=== PATIENT | female | born 1950 | race Caucasian/White ===

== ENCOUNTER → 2016-09-15 | Outpatient (CLI) | payer OTHER ==
--- NOTE | 2016-09-20 09:23 | MM ---
Reason for exam: screening (asymptomatic). Last mammogram was performed 1 year ago. History: Patient is postmenopausal. Physical Findings: A clinical breast exam by your physician is recommended on an annual basis and results should be correlated with mammographic findings. MG 3D Screening Mammo W/Cad Bilateral CC and MLO view(s) were taken. Prior study comparison: September 11, 2015, mammogram, performed at [facility]. September 18, 2014, mammogram, performed at [facility]. There are scattered fibroglandular densities. No significant changes when compared with prior studies. ASSESSMENT: Benign, BI-RAD 2 RECOMMENDATION: Routine screening mammogram of both breasts in 1 year.
== END | disposition home or self-care (01) ==
LOC: RADMAMWWP 13:46
PROVIDERS: ATTEND Family Medicine
DX: Z12.31 Encounter for screening mammogram for malignant neoplasm of breast (principal)
CPT/HCPCS: 77063; G0202

== ENCOUNTER 2017-07-02 13:07 | Emergency (ER) | payer OTHER ==
[2017-07-02 13:17] VITALS: BP 136/71; PULSE 68; RESP 20; TEMP 98.3
--- NOTE | 2017-07-02 13:50 | ED ---
General Adult HPI - General Chief complaint: Recheck/Abnormal Lab/Rx Stated complaint: Abdormal Labs/Cardiac Time Seen by Provider: 07/02/17 13:19 Source: patient, RN notes reviewed Mode of arrival: wheelchair Limitations: no limitations - History of Present Illness Initial comments: 67-year-old female presenting for evaluation of left arm bug bite. Patient was seen at [facility], for some unknown reason patient did have an EKG obtained and she was sent for concern of abnormal EKG. Patient has no history of coronary artery disease, no history of hypertension. She denies any chest pain shortness of breath, denies any shoulder pain and jaw pain and neck pain. Patient denies nausea vomiting or diarrhea. Denies fever or chills. Denies any weakness in her left upper extremity. She was seeking evaluation of itchy bug bite to her left upper extremity. This been present for approximately 3 weeks, she was recently in [place] and this is where the bug bite occurred. She was prescribed Celestina, prednisone, Zantac, and steroid cream prior to leaving urgent care. - Related Data Home Medications Medication Instructions Recorded Confirmed Citalopram Hydrobromide [CeleXA] 10 mg PO DAILY 12/16/14 12/16/14 Previous Rx's Medication Instructions Recorded chlordiazePOXIDE HCl [Librium] 25 mg PO QID #20 capsule 12/16/14 Allergies Allergy/AdvReac Type Severity Reaction Status Date / Time Sulfa (Sulfonamide Allergy Rash/Hives Verified 07/02/17 13:17 Antibiotics) Review of Systems ROS Statement: Those systems with pertinent positive or pertinent negative responses have been documented in the HPI. ROS Other: All systems not noted in ROS Statement are negative. 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 Absent: tenderness, meningismus Respiratory exam: Present: normal lung sounds bilaterally. Absent: respiratory distress Cardiovascular Exam: Present: regular rate, normal rhythm GI/Abdominal exam: Present: soft. Absent: distended, tenderness, guarding Extremities exam: Present: normal capillary refill, other (Small lesions on the anterior surface left upper extremity, no surrounding induration or fluctuance, no cellulitis, no signs of deep space infection or ALLERGIC reaction. 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 Absent: pedal edema, calf tenderness Neurological exam: Present: alert, oriented X3, CN II-XII intact. Absent: motor sensory deficit Psychiatric exam: Present: normal affect, normal mood Skin exam: Present: warm, dry, intact. Absent: cyanosis, diaphoretic Course Vital Signs 07/02/17 13:15 Temperature 98.3 F Pulse Rate 68 Respiratory 20 Rate Blood Pressure 136/71 O2 Sat by Pulse 99 Oximetry EKG Findings - EKG Comments: EKG Findings:: EKG shows sinus bradycardia rate of 59, CT interval 174, QRS duration 84, QTC 401, no ST segment changes, normal T waves, no signs of ischemia Medical Decision Making - Medical Decision Making 67-year-old female presenting for suspected bug bite. EKG was obtained and medics rest, these EKGs were reviewed, no ST segment changes, no concern for ischemia, these were sinus rhythm she is sinus bradycardia with a rate of 59, no signs of ischemia. Patient has no complaints to suggest myocardial infarction or ischemia. Patient will take the medications as prescribed for her bug bite, and follow-up with her primary care physician. Disposition Clinical Impression: Bug bite Disposition: HOME SELF-CARE Condition: Good Instructions: Insect Bite or Sting (ED) Additional Instructions: Please take medications prescribed by [facility] Referrals: Noam Rios MD [Primary Care Provider] - 1-2 days Time of Disposition: 13:48
== END 2017-07-02 13:55 | disposition home or self-care (01) ==
LOC: EC 13:07
DX: S40.862A Insect bite (nonvenomous) of left upper arm, initial encounter (principal); R00.1 Bradycardia, unspecified; F32.9 Major depressive disorder, single episode, unspecified; Z79.899 Other long term (current) drug therapy; Z88.2 Allergy status to sulfonamides; W57.XXXA Bitten or stung by nonvenomous insect and other nonvenomous arthropods, initial encounter
CPT/HCPCS: 93005; 99283; 99284

== ENCOUNTER → 2017-10-02 | Outpatient (CLI) | payer OTHER ==
--- NOTE | 2017-10-03 14:13 | MM ---
Reason for exam: screening (asymptomatic). Last mammogram was performed 1 year and 1 month ago. History: Patient is postmenopausal. Physical Findings: A clinical breast exam by your physician is recommended on an annual basis and results should be correlated with mammographic findings. MG 3D Screening Mammo W/Cad Bilateral CC and MLO view(s) were taken. Prior study comparison: September 15, 2016, bilateral MG 3d screening mammo w/cad. September 11, 2015, mammogram, performed at [facility]. There is chronic nodularity in the right breast. No significant changes when compared with prior studies. ASSESSMENT: Benign, BI-RAD 2 RECOMMENDATION: Routine screening mammogram of both breasts in 1 year.
== END | disposition home or self-care (01) ==
LOC: LABWHC1 13:50
PROVIDERS: ATTEND Internal Medicine
DX: Z12.31 Encounter for screening mammogram for malignant neoplasm of breast (principal)
CPT/HCPCS: 77063; 77067

== ENCOUNTER 2019-10-26 09:21 | Emergency (ER) | payer BC ==
[2019-10-26 09:30] VITALS: BP 121/70; PULSE 68; RESP 18; TEMP 97.7
[2019-10-26] MEDS ORDERED: PROPARACAINE 0.5% OPHTH DROPS 15 ML BTL RIGHT EYE STA (09:32)
[2019-10-26] MEDS ORDERED: FLUORESCEIN STRIPS 1 MG STRIP RIGHT EYE ONE (09:33)
--- NOTE | 2019-10-26 10:10 | ED ---
Eye Problem HPI - General Chief complaint: Eye Problems Stated complaint: eye problem Time Seen by Provider: 10/26/19 09:30 Source: patient Mode of arrival: ambulatory Limitations: no limitations - History of Present Illness Initial comments: The patient is a 69-year-old female past history of glaucoma and recent cataract repair who presents to the emergency room with reported foreign body sensation in her right eye. Patient had cataract surgery 5 days ago. States that her vision has been good after the procedure. Yesterday she was walking outside when she felt as that she caught something in her right eye. She has had foreign body sensation without visual disturbance. No flashes or floaters of light. Denies blurred vision or loss of vision. She does not wear contacts. Patient wears glasses for reading. Denies ocular pain. No fevers or chills. Increased tearing but denies drainage. There are no other alleviating, precipitating or modifying factors - Related Data Home Medications Medication Instructions Recorded Confirmed Citalopram Hydrobromide [CeleXA] 10 mg PO HS 12/16/14 07/02/17 Calcium Carbonate [Calcium] 600 mg PO DAILY 07/02/17 07/02/17 [place]-3 Fatty Acids/Fish Oil [Fish 1 cap PO DAILY 07/02/17 07/02/17 Oil 1,000 mg Softgel] Allergies Allergy/AdvReac Type Severity Reaction Status Date / Time Sulfa (Sulfonamide Allergy Rash/Hives Verified 10/26/19 09:31 Antibiotics) Review of Systems ROS Statement: Those systems with pertinent positive or pertinent negative responses have been documented in the HPI. ROS Other: All systems not noted in ROS Statement are negative. 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 No hypopyon. small FB underneath right eyelid). Absent: scleral icterus, conjunctival injection, nystagmus, periorbital swelling, periorbital tenderness Pupils: Present: normal accommodation Course Vital Signs 10/26/19 09:24 Temperature 97.7 F Pulse Rate 68 Respiratory 18 Rate Blood Pressure 121/70 O2 Sat by Pulse 99 Oximetry Medical Decision Making - Medical Decision Making Upon arrival the patient is placed in room 15. A thorough history and physical exam was performed. Pupils are equally reactive to light. Inversion of the patient's eyelids demonstrate some makeup underneath the patient's right eye which is extracted. Patient feels as if the foreign body has been removed. I continue to use proparacaine and fluorescein to numb and dye the patients eye. No abrasions identified. Recheck she is performed. Ocular pressures are obtained and are 21. Patient be discharged home at this time. Follow-up with Dr. Pihllip on Monday. Return to the emergency room for any new or worsening symptoms. The patient was discharged in stable condition Disposition Clinical Impression: Foreign body of eye, external, right Disposition: HOME SELF-CARE Condition: Stable Instructions (If sedation given, give patient instructions): Eye Foreign Body (ED) Additional Instructions: Please call Dr. Phillip on Monday to notify him of your presence in the emergency department. Return to the emergency room for any new or worsening symptoms Is patient prescribed a controlled substance at d/c from ED?: No Referrals: Fransisco Horne MD [Primary Care Provider] - 1-2 days Keely Phillip MD [STAFF PHYSICIAN] - 1-2 days Time of Disposition: 10:09
== END 2019-10-26 10:18 | disposition home or self-care (01) ==
LOC: EC 09:21
DX: T15.91XA Foreign body on external eye, part unspecified, right eye, initial encounter (principal); F32.9 Major depressive disorder, single episode, unspecified; Z79.899 Other long term (current) drug therapy; Z88.2 Allergy status to sulfonamides
CPT/HCPCS: 99283

== ENCOUNTER → 2020-01-13 | Outpatient (CLI) | payer BC ==
--- NOTE | 2020-01-15 07:44 | MM ---
Reason for exam: screening (asymptomatic). Last mammogram was performed 1 year and 3 months ago. History: Patient is postmenopausal. Physical Findings: A clinical breast exam by your physician is recommended on an annual basis and results should be correlated with mammographic findings. MG 3D Screening Mammo W/Cad Bilateral CC and MLO view(s) were taken. Prior study comparison: October 18, 2018, bilateral MG 3d screening mammo w/cad. October 02, 2017, bilateral MG 3d screening mammo w/cad. The breast tissue is heterogeneously dense. This may lower the sensitivity of mammography. Benign appearing bilateral calcifications. No significant changes when compared with prior studies. ASSESSMENT: Benign, BI-RAD 2 RECOMMENDATION: Routine screening mammogram of both breasts in 1 year.
== END | disposition home or self-care (01) ==
LOC: RADMAMWWP 12:32
PROVIDERS: ATTEND Internal Medicine
DX: Z12.31 Encounter for screening mammogram for malignant neoplasm of breast (principal)
CPT/HCPCS: 77063; 77067

== ENCOUNTER → 2021-02-12 | Outpatient (CLI) | payer BC ==
--- NOTE | 2021-02-15 09:43 | MM ---
Reason for exam: screening (asymptomatic). Last mammogram was performed 1 year and 1 month ago. History: Patient is postmenopausal. Physical Findings: A clinical breast exam by your physician is recommended on an annual basis and results should be correlated with mammographic findings. MG 3D Screening Mammo W/Cad Bilateral CC and MLO view(s) were taken. Prior study comparison: January 13, 2020, bilateral MG 3d screening mammo w/cad. October 18, 2018, bilateral MG 3d screening mammo w/cad. The breast tissue is heterogeneously dense. This may lower the sensitivity of mammography. No significant changes when compared with prior studies. ASSESSMENT: Negative, BI-RAD 1 RECOMMENDATION: Routine screening mammogram of both breasts in 1 year.
== END | disposition home or self-care (01) ==
LOC: RADMAMWWP 14:17
PROVIDERS: ATTEND Family Medicine
DX: Z12.31 Encounter for screening mammogram for malignant neoplasm of breast (principal); Z78.0 Asymptomatic menopausal state
CPT/HCPCS: 77063; 77067

== ENCOUNTER → 2022-02-15 | Outpatient (CLI) | payer BC ==
--- NOTE | 2022-02-16 18:49 | MM ---
Reason for Exam: Screening (asymptomatic). Last screening mammogram was performed 12 month(s) ago. Patient History: Menarche at age 11. Left ovary removed at age 33. Right ovary removed at age 33. Hysterectomy at age 33. Postmenopausal. Risk Values: Bonnie 5 year model risk: 1.3%. NCI Lifetime model risk: 3.0%. Prior Study Comparison: 10/18/2018 Bilateral Screening Mammogram, [facility]. 01/13/2020 Bilateral Screening Mammogram, [facility]. 02/12/2021 Bilateral Screening Mammogram, [facility]. Tissue Density: The breast tissue is heterogeneously dense. This may lower the sensitivity of mammography. Findings: Analyzed By CAD. Asymmetric density subareolar right cc view remains unchanged. There are areas of asymmetric density including nodular asymmetric density posterior medial left CC view also unchanged. No significant change from prior exams. Overall Assessment: Benign, BI-RAD 2 Management: Screening Mammogram of both breasts in 1 year. 1. Patient should continue monthly self breast exams. 2. A clinical breast exam by your physician is recommended on an annual basis. 3. This exam should not preclude additional follow-up of suspicious palpable abnormalities. Electronically signed and approved by: Chavez Atkins M.D. Radiologist
--- NOTE | 2022-02-16 18:49 | MM ---
Reason for Exam: Screening (asymptomatic). Last screening mammogram was performed 12 month(s) ago. Patient History: Menarche at age 11. Left ovary removed at age 33. Right ovary removed at age 33. Hysterectomy at age 33. Postmenopausal. Risk Values: Bonnie 5 year model risk: 1.3%. NCI Lifetime model risk: 3.0%. Prior Study Comparison: 10/18/2018 Bilateral Screening Mammogram, [facility]. 01/13/2020 Bilateral Screening Mammogram, [facility]. 02/12/2021 Bilateral Screening Mammogram, [facility]. Tissue Density: The breast tissue is heterogeneously dense. This may lower the sensitivity of mammography. Findings: Analyzed By CAD. Asymmetric density subareolar right cc view remains unchanged. There are areas of asymmetric density including nodular asymmetric density posterior medial left CC view also unchanged. No significant change from prior exams. Overall Assessment: Benign, BI-RAD 2 Management: Screening Mammogram of both breasts in 1 year. 1. Patient should continue monthly self breast exams. 2. A clinical breast exam by your physician is recommended on an annual basis. 3. This exam should not preclude additional follow-up of suspicious palpable abnormalities. Electronically signed and approved by: Chavez Atkins M.D. Radiologist
== END | disposition home or self-care (01) ==
LOC: RADMAMWWP 13:55
PROVIDERS: ATTEND Family Medicine
DX: Z12.31 Encounter for screening mammogram for malignant neoplasm of breast (principal); Z78.0 Asymptomatic menopausal state
CPT/HCPCS: 77063; 77067

== ENCOUNTER 2023-01-03 20:15 | Emergency (ER) | payer BC ==
--- NOTE | 2023-01-03 21:28 | ED ---
General Adult HPI - General Source: patient, RN notes reviewed Mode of arrival: ambulatory Limitations: no limitations <Marietta Ruiz - Last Filed: 01/03/23 21:27> <Taylor Tirado - Last Filed: 01/03/23 22:45> - General Chief complaint: Recheck/Abnormal Lab/Rx Stated complaint: Swelling in bottom lip, Pain Time Seen by Provider: 01/03/23 21:27 - History of Present Illness Initial comments: 72-year-old female presents to the emergency department the chief complaint of lip pain. Patient reports rash, tight feeling to her lower lip for 8 weeks. Patient recently placed on acyclovir. Denies difficulty in breathing (Marietta Ruiz) 72-year-old female presenting with chief complaint of pain and swelling to the lower lip. This has been ongoing for 8 weeks. She states that she has on her boat for the last 8 weeks and had difficulty getting him care. She was recently started on acyclovir which did not seem to help. She states that it is a burning pain. No difficulty breathing or swallowing. No new foods, medications, topical products. No swelling of the tongue. (Taylor Tirado) - Related Data Home Medications Medication Instructions Recorded Confirmed Citalopram Hydrobromide [CeleXA] 10 mg PO HS 12/16/14 07/02/17 Calcium Carbonate [Calcium] 600 mg PO DAILY 07/02/17 07/02/17 [place]-3 Fatty Acids/Fish Oil [Fish 1 cap PO DAILY 07/02/17 07/02/17 Oil 1,000 mg Softgel] Previous Rx's Medication Instructions Recorded Amoxic-Pot Clav 875-125Mg 1 tab PO Q12HR 7 Days #14 tab 01/03/23 [Augmentin 875-125] methylPREDNISolone Dose Pack 4 mg PO DIRECTED #1 packet 01/03/23 [Medrol Dose Pack] Allergies Allergy/AdvReac Type Severity Reaction Status Date / Time Sulfa (Sulfonamide Allergy Rash/Hives Verified 01/03/23 20:19 Antibiotics) Review of Systems ROS Other: All systems not noted in ROS Statement are negative. <Marietta Ruiz - Last Filed: 01/03/23 21:27> ROS Other: All systems not noted in ROS Statement are negative. <Taylor Tirado - Last Filed: 01/03/23 22:45> ROS Statement: Those systems with pertinent positive or pertinent negative responses have been documented in the HPI. 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 History of Any Multi-Drug Resistant Organisms: None Reported Past Surgical History: Hysterectomy, Orthopedic Surgery Additional Past Surgical History / Comment(s): cataract Past Psychological History: Depression Smoking Status: Never smoker Past Alcohol Use History: Abuse Past Drug Use History: None Reported <Marietta Ruiz - Last Filed: 01/03/23 21:27> General Exam Limitations: no limitations <Marietta Ruiz - Last Filed: 01/03/23 21:27> Limitations: no limitations General appearance: alert, in no apparent distress Head exam: Present: atraumatic, normocephalic, normal inspection Eye exam: Present: normal appearance, EOMI. Absent: periorbital swelling Expanded Mouth exam: Present: tongue normal, other (Swelling to the lower lip, scabs seen on the lip). Absent: drooling, trismus, muffled voice Throat exam: normal inspection Neck exam: Present: normal inspection, full ROM Respiratory exam: Present: normal lung sounds bilaterally. Absent: respiratory distress, wheezes, rales, rhonchi, stridor Cardiovascular Exam: Present: regular rate, normal rhythm, normal heart sounds. Absent: systolic murmur, diastolic murmur, rubs, gallop, clicks Neurological exam: Present: alert, oriented X3, CN II-XII intact Psychiatric exam: Present: normal affect, normal mood Skin exam: Present: warm, dry, intact, normal color. Absent: rash <Taylor Tirado - Last Filed: 01/03/23 22:45> - General Exam Comments Initial Comments: Visual Physical Exam Vital signs reviewed General: Well-appearing, nontoxic, no acute distress. Head: Normocephalic, atraumatic Eyes: PERRLA, EOMI ENT: Airway patent Chest: Nonlabored breathing Skin: No visual rash, normal skin tone Neuro: Alert and oriented 3 Musculoskeletal: No gross abnormalities I performed the quick note portion of this exam, verbal signature Marietta castillo PA-C (Marietta Ruiz) Course Vital Signs 01/03/23 01/03/23 20:17 22:26 Temperature 98.3 F 98.0 F Pulse Rate 83 76 Respiratory 18 17 Rate Blood Pressure 155/74 140/68 O2 Sat by Pulse 97 97 Oximetry Medical Decision Making <Taylor Tirado - Last Filed: 01/03/23 22:45> - Medical Decision Making Was pt. sent in by a medical professional or institution ([facility], [facility], urgent care, hospital, or long-term...) When possible be specific @ -No Did you speak to anyone other than the patient for history (EMS, parent, family, police, friend...)? What history was obtained from this source @ -No Did you review nursing and triage notes (agree or disagree)? Why? @ -I reviewed and agree with nursing and triage notes Were old charts reviewed (outside hosp., previous admission, EMS record, old EKG, old radiological studies, urgent care reports/EKG's, long-term records)? Report findings @ -No old charts were reviewed Differential Diagnosis (chest pain, altered mental status, abdominal pain women, abdominal pain men, vaginal bleeding, weakness, fever, dyspnea, syncope, headache, dizziness, GI bleed, back pain, seizure, CVA, palpatations, mental health, musculoskeletal)? @ -Differential includes ALLERGIC reaction, cellulitis, cold sore, this is not an all inclusive list EKG interpreted by me (3pts min.). @ -As above X-rays interpreted by me (1pt min.). @ -None done CT interpreted by me (1pt min.). @ -None done U/S interpreted by me (1pt. min.). @ -None done What testing was considered but not performed or refused? (CT, X-rays, U/S, labs)? Why? @ -None What meds were considered but not given or refused? Why? @ -None Did you discuss the management of the patient with other professionals (professionals i.e. [facility], [facility], lab, RT, psych nurse, licensed clinical social worker, respiratory therapy aide, teacher, bank secrecy act officer, telehealth case manager)? Give summary @ -No Was smoking cessation discussed for >3mins.? @ -No Was critical care preformed (if so, how long)? @ -No Were there social determinants of health that impacted care today? How? (Homelessness, low income, unemployed, alcoholism, drug addiction, transportat ion, low edu. Level, literacy, decrease access to med. care, shelter, rehab)? @ -No Was there de-escalation of care discussed even if they declined (Discuss DNR or withdrawal of care, Hospice)? DNR status @ -No What co-morbidities impacted this encounter? (DM, HTN, Smoking, COPD, CAD, Cancer, CVA, ARF, Chemo, Hep., AIDS, mental health diagnosis, sleep apnea, morbid obesity)? @ -None Was patient admitted / discharged? Hospital course, mention meds given and route, prescriptions, significant lab abnormalities, going to OR and other pertinent info. @ -72-year-old female presenting with chief complaint of pain and swelling to the lower lip ongoing for several weeks. She was treated with acyclovir which did not relieve her symptoms. On physical examination there is some swelling to the lower lip with some scabs noted. No swelling of the tongue and normal post erior pharynx is noted. No difficulty breathing. Heart and lungs are clear to auscultation. Patient is instructed take Benadryl at home as needed, she did provide a Medrol Dosepak. She will also be treated with Augmentin for possible bacterial infection. Follow-up with PCP. Report back to ER with any new or worsening symptoms. Discussed return parameters and answered all questions. Patient conveyed verbal understanding and agreed to the plan. I discussed this case in detail with my attending Dr. Undiagnosed new problem with uncertain prognosis? @ -No Drug Therapy requiring intensive monitoring for toxicity (Heparin, Nitro, Insulin, Cardizem)? @ -No Were any procedures done? @ -No Diagnosis/symptom? @ -Cellulitis Acute, or Chronic, or Acute on Chronic? @ -[Acute Uncomplicated (without systemic symptoms) or Complicated (systemic symptoms)? @ -[Uncomplicated Side effects of treatment? @ -[o]Exacerbation, Progression, or Severe Exacerbation? @ -[o]Poses a threat to life or bodily function? How? (Chest pain, [place], [place], pneumonia, PE, COPD, DKA, ARF, appy, cholecystitis, CVA, Diverticulitis, Homicidal, Suicidal, threat to staff... and all critical care pts) @ -[o] (Taylor Tirado) Disposition <Marietta Ruiz - Last Filed: 01/03/23 21:27> Is patient prescribed a controlled substance at d/c from ED?: No Time of Disposition: 21:54 <Taylor Tirado - Last Filed: 01/03/23 22:45> Clinical Impression: Cellulitis Disposition: HOME SELF-CARE Condition: Good Instructions (If sedation given, give patient instructions): Cellulitis (ED) Additional Instructions: Follow-up with PCP. Report back to ER with any new or worsening symptoms. Take Benadryl as needed. Prescriptions: Amoxic-Pot Clav 875-125Mg [Augmentin 875-125] 1 tab PO Q12HR 7 Days #14 tab methylPREDNISolone Dose Pack [Medrol Dose Pack] 4 mg PO DIRECTED #1 packet Referrals: Elizabeth Oseguera MD [Primary Care Provider] - 1-2 days
[2023-01-03 22:28] VITALS: BP 140/68; PULSE 76; RESP 17; TEMP 98
== END 2023-01-03 22:26 | disposition home or self-care (01) ==
LOC: EC 20:15
DX: K13.0 Diseases of lips (principal); F32.A Depression, unspecified; Z79.899 Other long term (current) drug therapy; Z88.2 Allergy status to sulfonamides
CPT/HCPCS: 99283

== ENCOUNTER → 2023-02-16 | Outpatient (CLI) | payer BC ==
--- NOTE | 2023-02-17 12:16 | BD ---
EXAMINATION TYPE: Axial Bone Density DATE OF EXAM: 02/16/2023 CLINICAL HISTORY: 73 years old Female. ICD-10 CODE: Z78.0 POST MENOPAUSAL WITHOUT HRT Height: Weight: FRAX RISK QUESTIONS: Family History (Parent hip fracture): no History of Fracture in Adulthood: no Secondary Osteoporosis: no RISK FACTORS HISTORY OF: Family History of Osteoporosis: no Active: yes Diet low in dairy products/other sources of calcium: no Postmenopausal woman: yes Lost more than 2 inches in height since high school: yes was 64 Frequent falls: no Poor Health: no MEDICATIONS: Additional Medications: yes anxiety EXAM MEASUREMENTS: Bone mineral densitometry was performed using the [employer] System. Bone mineral density as measured about the Lumbar spine is: ----- L1-L4(G/cm2): 1.278 T Score Values are as follows: ----- L1: -30 ----- L2: 0.5 ----- L3: 1.5 ----- L4: 1.5 ----- L1-L4: 0.8 Z Score Values are as follows: ----- L1: 1.3 ----- L2: 2.1 ----- L3: 3.1 ----- L4: 3.1 ----- L1-L4: 2.4 Bone mineral density baseline Bone mineral density about the R hip (g/cm2): 0.936 Bone mineral density about the L hip (g/cm2): 0.947 T Score values are as follows: -----R Neck: -1.6 -----L Neck: -1.2 -----R Total: -0.6 -----L Total: -0.5 Z Score values are as follows: -----R Neck: 0.2 -----L Neck: 0.6 -----R Total: 1.0 -----L Total: 1.1 Bone mineral density baseline FRAX%s: The graph provided illustrates a 11.6% chance for a major osteoporotic fx and a 2.5% chance f or the hips probability for fx in 10 years time. IMPRESSION: Normal (Values between +1 and -1 indicate normal bone mass). Consider repeating this study in 5 year s or sooner if there is some new clinical indication. NOTE: T-SCORE=SD OF THE YOUNG ADULT MEAN.
--- NOTE | 2023-02-20 01:39 | MM ---
Reason for Exam: Screening (asymptomatic). Last screening mammogram was performed 12 month(s) ago. Patient History: Menarche at age 11. Patient has no children. Left ovary removed at age 33. Right ovary removed at age 33. Hysterectomy at age 33. Postmenopausal. Risk Values: Bonnie 5 year model risk: 2.0%. NCI Lifetime model risk: 4.2%. Prior Study Comparison: 01/13/2020 Bilateral Screening Mammogram, [facility]. 02/12/2021 Bilateral Screening Mammogram, [facility]. 02/15/2022 Bilateral MG 3D screening mammo w/cad, [facility]. Tissue Density: The breast tissue is heterogeneously dense. This may lower the sensitivity of mammography. Findings: Analyzed By CAD. There is no suspicious group of microcalcifications or new suspicious mass in either breast. Overall Assessment: Negative, BI-RAD 1 Management: Screening Mammogram of both breasts in 1 year. . Patient should continue monthly self-breast exams. A clinical breast exam by your physician is recommended on an annual basis. This exam should not preclude additional follow-up of suspicious palpable abnormalities. Note on Bonnie scores and lifetime risk: 1. A Bonnie score greater than 3% is considered moderate risk. If this is the case, consider specialist referral to assess eligibility for a risk reducing agent. 2. If overall lifetime risk for the development of breast cancer is 20% or higher, the patient may qualify for future screening with alternating mammogram and breast MRI. Electronically signed and approved by: Chavez Atkins M.D. Radiologist
== END | disposition home or self-care (01) ==
LOC: RADMAMWWP 14:01
PROVIDERS: ATTEND Family Medicine
DX: Z12.31 Encounter for screening mammogram for malignant neoplasm of breast (principal); Z78.0 Asymptomatic menopausal state; M85.89 Other specified disorders of bone density and structure, multiple sites
CPT/HCPCS: 77063; 77067; 77080

== ENCOUNTER → 2024-01-03 | Outpatient (CLI) | payer BC ==
--- NOTE | 2024-01-03 08:19 | XR ---
EXAMINATION TYPE: XR KUB DATE OF EXAM: 01/03/2024 8:07 AM CLINICAL INDICATION: Female, 73 years old with history of R31.29 Microscopic hematuria; [facility] COMPARISON: None. TECHNIQUE: One radiographic view of the abdomen was obtained. FINDINGS: The bowel gas pattern is nonspecific without dilated loops of small or large bowel. . Fecal material and gas are demonstrated throughout the colon and rectum. There is no evidence for organomegaly or pneumoperitoneum. The osseous structures are intact. No ab normal calcifications are present. IMPRESSION: Nonspecific bowel gas pattern without radiographic evidence for acute process.
== END | disposition home or self-care (01) ==
LOC: RADXRMAIN 07:52
PROVIDERS: ATTEND Internal Medicine
DX: R31.29 Other microscopic hematuria (principal)
CPT/HCPCS: 74018

== ENCOUNTER → 2024-02-19 | Outpatient (CLI) | payer BC ==
--- NOTE | 2024-02-20 19:03 | MM ---
Reason for Exam: Screening (asymptomatic). Last screening mammogram was performed 12 month(s) ago. Patient History: Menarche at age 11. Patient has no children. Left ovary removed at age 33. Right ovary removed at age 33. Hysterectomy at age 33. Postmenopausal. Risk Values: Bonnie 5 year model risk: 2.0%. NCI Lifetime model risk: 4.0%. Prior Study Comparison: 09/15/2016 Bilateral Screening Mammogram, [facility]. 10/02/2017 Bilateral Screening Mammogram, [facility]. 10/18/2018 Bilateral Screening Mammogram, [facility]. 01/13/2020 Bilateral Screening Mammogram, [facility]. 02/12/2021 Bilateral Screening Mammogram, [facility]. 02/15/2022 Bilateral MG 3D screening mammo w/cad, [facility]. 02/16/2023 Bilateral MG 3D screening mammo w/cad, [facility]. Tissue Density: The breasts are heterogeneously dense, which may obscure small masses. Findings: Analyzed By CAD. Unchanged bilateral areas of asymmetric density. Benign round calcifications posterior right upper outer quadrant. There is no suspicious group of microcalcifications or new suspicious mass in either breast. Overall Assessment: Benign, BI-RAD 2 Management: Screening Mammogram of both breasts in 1 year. . Patient should continue monthly self-breast exams. A clinical breast exam by your physician is recommended on an annual basis. This exam should not preclude additional follow-up of suspicious palpable abnormalities. Note on Bonnie scores and lifetime risk: 1. A Bonnie score greater than 3% is considered moderate risk. If this is the case, consider specialist referral to assess eligibility for a risk reducing agent. 2. If overall lifetime risk for the development of breast cancer is 20% or higher, the patient may qualify for future screening with alternating mammogram and breast MRI. [facility], , 02/20/2024 6:59 PM. Electronically signed and approved by: Chavez Atkins M.D. Radiologist
== END | disposition home or self-care (01) ==
LOC: RADMAMWWP 07:24
PROVIDERS: ATTEND Internal Medicine
CPT/HCPCS: 77063; 77067

== ENCOUNTER → 2024-02-26 | Outpatient (CLI) | payer BC ==
--- NOTE | 2024-02-26 14:03 | XR ---
EXAMINATION TYPE: XR shoulder complete 3 views RT DATE OF EXAM: 02/26/2024 Comparison: None Clinical History: 74-year-old female M25.511 acute R shoulder pain Findings: Severe degenerative joint space narrowing with subchondral sclerosis and marginal spurring at the AC joint. Subacromial space is preserved. No acute fracture, subluxation, dislocation. Impression: Severe AC joint OA. The inferior spurring may also contribute to subacromial impingement. No acute os seous abnormality seen. [facility], , 02/26/2024 2:00 PM
== END | disposition home or self-care (01) ==
LOC: RADXRMAIN 07:36
PROVIDERS: ATTEND Internal Medicine
DX: M19.011 Primary osteoarthritis, right shoulder (principal)

== ENCOUNTER → 2024-08-30 | Outpatient (CLI) | payer BC ==
--- NOTE | 2024-08-30 15:18 | XR ---
EXAMINATION TYPE: XR chest 2V DATE OF EXAM: 08/30/2024 2:05 PM COMPARISON: None CLINICAL INDICATION: Female, 74 years old with history of R09.89 OTH SYMPTOMS AND SIGNS INVOLVING THE CIRC A, cough for 3 weeks TECHNIQUE: Frontal and lateral views FINDINGS: The cardiomediastinal silhouette, aorta, and pulmonary vasculature are within normal limits. Mild hyp erinflation. Otherwise, lungs and pleural spaces are clear. IMPRESSION: Mild hyperinflation may relate to depth of inspiration or underlying emphysema. Otherwise, no acute c ardiopulmonary process. [facility], Workstation: Leela-HONG, 08/30/2024 3:16 PM
== END | disposition home or self-care (01) ==
LOC: RADXRMAIN 13:50
PROVIDERS: ATTEND Internal Medicine
DX: J43.9 Emphysema, unspecified (principal); R09.89 Other specified symptoms and signs involving the circulatory and respiratory systems
CPT/HCPCS: 71046

== ENCOUNTER 2024-09-06 09:10 | Day surgery (SDC) | payer BC ==
[2024-09-05 09:01] VITALS: BMI 24.5
[2024-09-06 10:19] VITALS: TEMP 96.4
[2024-09-06] MEDS: LACTATED RINGERS 1,000 ML IV SCH (10:21)
[2024-09-06] MEDS: IV FLUID CONTINUATION 1,000 ML IV ONE (10:28)
[2024-09-06] MEDS ORDERED: PROPOFOL 10 MG/ML 20 ML VIAL IV ONE (11:44)
--- NOTE | 2024-09-06 11:57 | P.PCN ---
Date of Procedure: 09/06/24 Procedure(s) Performed: BRIEF HISTORY: Patient is a 74-year-old pleasant white female scheduled for an elective colonoscopy as a part of screening for colon cancer. PROCEDURE PERFORMED: Colonoscopy. PREOPERATIVE DIAGNOSIS: Screening for colon cancer. IV sedation per Anesthesia. PROCEDURE: After informed consent was obtained, the patient, was brought into the endoscopy unit. IV sedation was administered by Anesthesia under continuous monitoring. Digital rectal examination was normal. Initially the Olympus CF-160 flexible video colonoscope was then inserted in the rectum, gradually advanced into the cecum without any difficulty. Careful examination was performed as the scope was gradually being withdrawn. Ileocecal valve and the appendiceal orifice were visualized and appeared normal. Prep was excellent. Mucosa of the cecum, ascending colon, transverse colon, descending colon, sigmoid colon, and rectum appeared normal. Scattered sigmoid diverticulosis. Retroflexion was performed in the rectum and no lesions were seen. The patient tolerated the procedure well. IMPRESSION: Normal-appearing colon from rectum to cecum with no evidence of colorectal neoplasia. Scattered sigmoid diverticulosis. RECOMMENDATIONS: Findings of this examination were discussed with the patient as well as her family. She was advised to have repeat screening colonoscopy in 10 years.
[2024-09-06 12:17] VITALS: BP 118/76; PULSE 78; RESP 18
== END 2024-09-06 12:52 | disposition home or self-care (01) ==
LOC: ORWHC2ENDO 09:10
PROVIDERS: ATTEND Internal Medicine Gastroenterology
DX: Z12.11 Encounter for screening for malignant neoplasm of colon (principal); K57.30 Diverticulosis of large intestine without perforation or abscess without bleeding; E78.5 Hyperlipidemia, unspecified; F32.A Depression, unspecified; Z79.899 Other long term (current) drug therapy; Z90.710 Acquired absence of both cervix and uterus; Z98.49 Cataract extraction status, unspecified eye; Z88.2 Allergy status to sulfonamides
CPT/HCPCS: 45378; J2704

== ENCOUNTER 2024-10-28 06:00 | Day surgery (SDC) | payer BC ==
[2024-10-24 14:42] VITALS: BMI 25.0
[2024-10-28] MEDS ORDERED: ALPRAZolam 0.25 MG TAB PO PRN (06:28)
[2024-10-28] MEDS ORDERED: ALPRAZolam 0.5 MG TAB PO PRN (06:28)
[2024-10-28] MEDS ORDERED: SODIUM CHLORIDE 0.9% 1,000 ML in EMPTY BAG 1 BAG IV SCH ×2 (06:28→09:00)
[2024-10-28] MEDS ORDERED: NITROGLYCERIN SL TABS 0.4 MG TAB SUBLINGUAL PRN ×2 (06:28→08:57)
[2024-10-28] MEDS: ASPIRIN 325 MG TAB PO STA (06:48)
[2024-10-28 06:49] LABS: Glucose,Whole Blood 111 mg/dL (70-110)
[2024-10-28] MEDS: IV FLUID CONTINUATION 1,000 ML IV ONE ×2 (06:49→11:30)
[2024-10-28] MEDS: EMPTY BAG 1 BAG with SODIUM CHLORIDE 0.9% 1,000 ML IV ONE (06:49)
[2024-10-28 06:52] VITALS: RESP 16; TEMP 97.9
[2024-10-28] MEDS: HEPARIN SODIUM,PORCINE (1 ML) 2,500 UNIT in SODIUM CHLORIDE 0.9% 250 ML IRRIGATION PRN (07:32)
[2024-10-28] MEDS: HEPARIN SODIUM,PORCINE 10,000 UNIT in SODIUM CHLORIDE 0.9% 1,000 ML IRRIGATION PRN (07:32)
[2024-10-28] MEDS: fentaNYL (PF) 50 MCG/ML 2 ML AMP IVP ONE (07:33)
[2024-10-28] MEDS: LIDOCAINE 1% INJ 10MG/ML (20 ML MDV) SQ ONE (07:33)
[2024-10-28] MEDS: VERAPAMIL SYRINGE (5 MG/10 ML) INTRAARTER ONE (07:38)
[2024-10-28] MEDS: HEPARIN SODIUM 1,000 UN/ML (10ML VL) IVP ONE (07:40)
[2024-10-28] MEDS: MIDAZOLAM 2 MG/2 ML VIAL IVP ONE (07:43)
[2024-10-28] MEDS: NITROGLYCERIN 1000MCG/10ML SYRINGE INTRACORON ONE (07:54)
[2024-10-28] MEDS: CLOPIDOGREL 75 MG TAB PO ONE (08:00)
[2024-10-28] MEDS: IOPAMIDOL-370 100ML BTL INJ ONE ×2 (08:08→08:41)
[2024-10-28] MEDS ORDERED: MAG HYDROX/AL HYDROX/SIMETH 30 ML CUP PO PRN (08:57)
[2024-10-28] MEDS ORDERED: ATROPINE SULFATE 0.1 MG/ML 10ML SYRINGE IV PRN (08:57)
[2024-10-28] MEDS ORDERED: ZOLPIDEM 5 MG TAB PO PRN (08:57)
[2024-10-28] MEDS ORDERED: RX INFO: IV CONTRAST WAS GIVEN 1 EACH MISC MISCELLANE PRN (08:57)
--- NOTE | 2024-10-28 09:10 | P.CARDCATH ---
Date of Procedure: 10/28/24 Description of Procedure: Cardiac Catheterization: The patient is a 74-year-old female with history of hyperlipidemia and diabetes who had a normal coronary calcium score and had an abnormal MPI. Recommendations were made regarding cardiac catheterization, the risks and the complications were discussed with the patient who is in full understanding and agreement. Procedure Description: Patient was brought to receiver/laborer in fasting semi-sedated state after receiving Fentanyl and Benadryl achieiving moderate conscious sedated state. Using Xylocaine Anesthesia and modified Seldinger technique, a 6-Irish sheath was introduced in the right radial artery . Subsequently, selective coronary angiography was performed using a 5-Irish 3.5 bend Ban catheter. Multiple views of the coronary artery including hemiaxial views were obtained. The 5 Irish pigtail catheter was used to cross the aortic valve and LVEDP was calculated. PCI: After removing the catheter a 6 Irish CLS an Omni Doppler flow wire was positioned in the distal RCA and IFR was measured at 0.72. Subsequently a Fitbit Yancey eye IVUS catheter was introduced and imaging was performed and revealed the distal lumen of 3.5 to 4 mm with moderate calcification. After removing the catheter a 3.5 x 15 mm Xience Skypoint stent was deployed at 16 kari and after removing the balloon a 3.5 x 23 mm Xience Skypoint stent was deployed distal to the first 1 at 16 kari. After removing the balloon repeat IVUS imaging was performed and subsequently a 4.0 x 15 mm NC trek balloon was advanced and 2 inflations in the proximal and mid segment were performed at 12 kari. After the last inflation the wire was removed and images were obtained and revealed stable successful stenting. At that point, the guidewire and the guiding catheter were removed and a 6 Irish AL 0.75 was introduced and the ostium of the RCA was cannulated. Subsequently the Omni Doppler flow wire was advanced to the distal RCA and IFR was measured at 1.00. Following that the guiding catheter was removed. Following that, catheter and sheath were removed. Hemostasis was obtained with deployment of vascular band . There was no immediate complication. Patient was returned to room in stable condition. Of note, the patient received a total of 6500 units of intravenous heparin as well as intra-arterial verapamil. She received an oral loading dose of clopidogrel, her ACT was monitored. She had no chest discomfort or EKG changes with the inflations that resolved at the end of the procedure. Findings: Fluoroscopy: Severe calcification of the proximal and mid RCA was noted. Left main: This is a large size vessel, bifurcating into LAD and left circumflex, left main has no significant obstructive disease. LAD: This is a heavily calcified vessel, reaching to the apex, giving rise to 2 small diagonal branch. The proximal LAD has a 40% plaque the mid LAD has 70 to 80% plaque, the rest of the vessel has no high-grade stenosis Left circumflex: This is a nondominant vessel large in caliber giving rise to a very proximal obtuse marginal branch that has a 30 to 40% plaque proximally the second obtuse marginal branch is small in caliber and has no high-grade stenosis. RCA: This is a dominant vessel large in caliber, calcified. The mid RCA has tubular intimal disease up to 60%, the rest of the vessel has no high-grade stenosis Left Ventriculogram: Not performed Hemodynamics: There was no gradient across the aortic valve, LVEDP was 18-20 mmHg Conclusion: 1. Calcified coronary arteries 2. Moderate disease in the mid RCA, none hemodynamically significant 3. Significant disease in the proximal and mid LAD, with an IFR of 0.72 4. Mild disease in the left circumflex 5. Successful stenting of the mid and proximal LAD with reduction stenosis from 80% to 0% with NENO-3 flow and IVUS imaging Recommendations: The patient will continue on aspirin and clopidogrel without any interruption for 6 months in addition to aggressive coronary risks modifications, attempting to maintain LDL below 70 mg/dL. The findings and the recommendations were discussed with the patient and the family and they were in full understanding and agreement. Duration of sedation is 66 minutes.
[2024-10-28] MEDS: ASPIRIN 81 MG PO SCH (14:09)
[2024-10-28 14:20] VITALS: BP 158/72; PULSE 72
[2024-10-28] MEDS ORDERED: ATORVASTATIN 40 MG TAB PO SCH (21:00)
[2024-10-29] MEDS ORDERED: CLOPIDOGREL 75 MG TAB PO SCH (09:00)
== END 2024-10-28 14:10 | disposition home or self-care (01) ==
LOC: CATHCVL 06:00
PROVIDERS: ATTEND Internal Medicine Interventional Cardiology
DX: I25.10 Atherosclerotic heart disease of native coronary artery without angina pectoris (principal); I25.84 Coronary atherosclerosis due to calcified coronary lesion; I25.83 Coronary atherosclerosis due to lipid rich plaque; E11.9 Type 2 diabetes mellitus without complications; E78.2 Mixed hyperlipidemia; Z79.82 Long term (current) use of aspirin; Z79.84 Long term (current) use of oral hypoglycemic drugs; Z79.899 Other long term (current) drug therapy; Z87.891 Personal history of nicotine dependence; Z88.1 Allergy status to other antibiotic agents; Z88.2 Allergy status to sulfonamides
CPT/HCPCS: 92978; 93458; 93799; C9600; C1887 ×2; C1769 ×3; C1894; C1753; C1874 ×2; C1725; J2250; J1644 ×3; J2003; J3010; Q9967; J2305